=== PATIENT | female | born 1940 | race Caucasian/White ===

== ENCOUNTER 2023-05-04 16:22 | Inpatient (IN) | payer MEDICARE ==
[2023-05-04] MEDS ORDERED: dilTIAZem 25 MG/5 ML VIAL ONE ×2 (17:12→18:06)
[2023-05-04 17:18] LABS: #Eosinphils 0.2 thou/uL (0.0-0.7); #Monocytes 0.6 thou/uL (0.11-0.59); #Neutrophils 3.9 thou/uL (1.40-6.50); %Basophils 0.7 % (0.0-1.0); %Eosinophils 2.9 % (0.0-10.0); %Lymphocytes 21.3 % (21.0-51.0); %Monocytes 9.3 % (0.0-10.0); %Neutrophils 65.6 % (42.0-75.0); Hematocrit 41.1 % (36.0-47.0); Hemoglobin 13.5 g/dL (12.0-16.0); Mean Corpuscular HGB CONC 32.8 g/dL (32.0-36.0); Mean Corpuscular Hemoglobin 31.1 pg (27.0-31.0); Mean Corpuscular Volume 94.7 fl (78.0-98.0); Mean Platelet Volume 12.4 fL (7.4-10.4); Platelet Count 220 10x3/uL (130-400); RBC Distribution Width 14.1 % (11.5-14.5); Red Blood Cell (RBC) Count 4.34 mill/uL (4.20-5.40); White Blood Cell (WBC) Count 5.9 10x3/uL (4.8-10.8)
[2023-05-04 17:33] LABS: ALT (SGPT) 8 U/L (8-55); AST (SGOT) 14 U/L (5-34); Alkaline Phosphatase 66 U/L (40-110); Anion Gap 9 mmol/L (10-20); BUN (Urea Nitrogen) 14 mg/dL (9.8-20.1); Bilirubin, Total 0.8 mg/dL (0.2-1.2); Calc. Creatinine Clearance 0 mL/min (70-130); Calcium 8.1 mg/dL (7.8-10.44); Carbon Dioxide 23 mmol/L (23-31); Chloride 115 mmol/L (98-107); Estimated GFR 55; Globulin 2.8 g/dL (2.4-3.5); Glucose 89 mg/dL (83-110); Magnesium 1.7 mg/dL (1.6-2.6); Potassium 3.1 mmol/L (3.5-5.1); Protein, Total 5.8 g/dL (5.8-8.1); Sodium 144 mmol/L (136-145)
[2023-05-04 17:36] LABS: Troponin I 0.013 ng/mL (< 0.028)
[2023-05-04] MEDS ORDERED: Ondansetron PF 4 MG/2 ML Vial IVP PRN (17:59)
[2023-05-04] MEDS ORDERED: Furosemide 20 MG (2 mL) VIAL SLOW IVP SCH (18:00)
[2023-05-04] MEDS ORDERED: dilTIAZem 125 MG in Sodium Chloride 0.9% 100 ML IVPB SCH (18:00)
[2023-05-04] MEDS ORDERED: Potassium Bicarbonate/Cit Ac 20 MEQ TAB ONE (18:06)
[2023-05-04] MEDS ORDERED: NS 0.9% w/ 20 MEQ KCL 1,000 ML ONE (18:06)
[2023-05-04] MEDS ORDERED: Magnesium 2 GM/50 ML BAG (IN WATER) ONE (18:06)
[2023-05-04] MEDS ORDERED: Potassium Chloride 20 MEQ TAB PO SCH (18:30)
[2023-05-04 22:17] VITALS: BMI 32.5
[2023-05-04 22:28] LABS: Troponin I Less than 0.010 ng/mL (< 0.028)
[2023-05-04] MEDS: Apixaban 5 MG TAB PO SCH (23:09)
[2023-05-05] MEDS: dilTIAZem 125 MG in Sodium Chloride 0.9% 100 ML IVPB SCH ×2 (02:28→23:58)
[2023-05-05 05:12] LABS: #Basophils 0.1 thou/uL (0.0-0.2); #Eosinphils 0.1 thou/uL (0.0-0.7); #Monocytes 0.6 thou/uL (0.11-0.59); #Neutrophils 4.6 thou/uL (1.40-6.50); %Basophils 0.8 % (0.0-1.0); %Eosinophils 2.1 % (0.0-10.0); %Lymphocytes 18.5 % (21.0-51.0); %Monocytes 8.9 % (0.0-10.0); %Neutrophils 69.5 % (42.0-75.0); Hematocrit 42.1 % (36.0-47.0); Hemoglobin 13.3 g/dL (12.0-16.0); Mean Corpuscular HGB CONC 31.6 g/dL (32.0-36.0); Mean Corpuscular Hemoglobin 30.6 pg (27.0-31.0); Mean Platelet Volume 11.8 fL (7.4-10.4); Platelet Count 175 10x3/uL (130-400); RBC Distribution Width 14.2 % (11.5-14.5); Red Blood Cell (RBC) Count 4.34 mill/uL (4.20-5.40); White Blood Cell (WBC) Count 6.6 10x3/uL (4.8-10.8)
[2023-05-05 05:36] LABS: Anion Gap 16 mmol/L (10-20); BUN (Urea Nitrogen) 17 mg/dL (9.8-20.1); Calc. Creatinine Clearance 56 mL/min (70-130); Calcium 9.2 mg/dL (7.8-10.44); Carbon Dioxide 18 mmol/L (23-31); Chloride 109 mmol/L (98-107); Estimated GFR 56; Glucose 105 mg/dL (83-110); Potassium 4.7 mmol/L (3.5-5.1); Sodium 138 mmol/L (136-145)
[2023-05-05] MEDS: Furosemide 20 MG (2 mL) VIAL SLOW IVP SCH ×2 (06:23→14:15)
[2023-05-05] MEDS: Apixaban 5 MG TAB PO SCH ×2 (09:44→21:39)
[2023-05-05] MEDS ORDERED: Lorazepam 2 MG/ML VIAL SLOW IVP PRN (11:53)
[2023-05-05] MEDS: Digoxin 0.5 MG/2 ML AMP SLOW IVP SCH ×2 (14:15→21:37)
[2023-05-05] MEDS ORDERED: QUEtiapine 25 MG TAB PO SCH (14:15)
[2023-05-05] MEDS ORDERED: Ziprasidone 20 MG VIAL IM SCH (15:15)
[2023-05-05] MEDS ORDERED: Sterile Water 10 ML VIAL FS PRN (15:30)
[2023-05-05 16:27] LABS: Bacteria/HPF None Seen HPF (None Seen); Bilirubin Negative (Negative); Blood, Urine Negative (Negative); CAUTI Indications for Culture Alt mental st,lethar; Clarity Clear (Clear); Glucose, Urine (Dipstick) Normal (Negative); Ketone, Urine Negative (Negative); Leukocyte Negative Leu/uL (Negative); Nitrite Negative (Negative); Protein, Urine (Dipstick) Negative (Neg-Trace); RBC/HPF 0-3 HPF (0-3); Specific Gravity, Urine 1.011 (1.002-1.036); Squamous Epithelial 0-3 HPF (0-3); Urobilinogen Normal mg/dL (Less than 2); WBC/HPF 0-3 HPF (0-3); pH, Urine 7.5 (5.0-9.0)
[2023-05-05 16:30] LABS: Urine Culture Reflex No No
[2023-05-06] MEDS: Digoxin 0.5 MG/2 ML AMP SLOW IVP SCH ×2 (02:45→11:52)
[2023-05-06] MEDS ORDERED: VIT D3 PO SCH (09:00)
[2023-05-06] MEDS ORDERED: HOPS PO SCH (09:00)
[2023-05-06] MEDS ORDERED: VIT K PO SCH (09:00)
[2023-05-06] MEDS ORDERED: BERBERINE PO SCH (09:00)
[2023-05-06] MEDS ORDERED: [UNRECOGNIZED DRUG - OTHER] PO SCH (09:00)
[2023-05-06] MEDS ORDERED: Digoxin 0.5 MG/2 ML AMP SLOW IVP SCH (11:45)
[2023-05-06] MEDS: Apixaban 5 MG TAB PO SCH (12:04)
[2023-05-06] MEDS: Atorvastatin Calcium 40 MG TAB PO SCH (12:04)
[2023-05-06] MEDS: Multivitamin W/ Minerals 1 TAB PO SCH (12:05)
[2023-05-06] MEDS: Flecainide 50 MG TAB PO SCH ×2 (12:05→22:22)
[2023-05-06] MEDS: Memantine 10 MG TAB PO SCH ×2 (12:05→22:22)
[2023-05-06] MEDS: dilTIAZem CD 180 MG CAP PO SCH (12:05)
[2023-05-06] MEDS ORDERED: PROPOFOL 20 ML ONE (14:15)
[2023-05-06] MEDS ORDERED: Enoxaparin 80 MG (0.8 mL) SYRINGE SC SCH (16:45)
[2023-05-07 05:46] VITALS: TEMP 98
[2023-05-07] MEDS: Atorvastatin Calcium 40 MG TAB PO SCH (08:39)
[2023-05-07] MEDS: Multivitamin W/ Minerals 1 TAB PO SCH (08:39)
[2023-05-07] MEDS: dilTIAZem CD 180 MG CAP PO SCH (08:39)
[2023-05-07] MEDS: Flecainide 50 MG TAB PO SCH (08:39)
[2023-05-07] MEDS: Memantine 10 MG TAB PO SCH (08:39)
[2023-05-07 08:45] VITALS: BP 142/84
[2023-05-07] MEDS ORDERED: Apixaban 5 MG TAB PO SCH (09:00)
[2023-05-08] MEDS ORDERED: FLU VACC QS2023(65UP)/MF59C/PF 60 MCG/0.5 ML SYRINGE IM ONE (09:00)
== END 2023-05-07 10:45 | disposition home or self-care (01) | DRG 308 ==
LOC: ERS 16:22 → 2NO 18:03 → OBSVTOIN 05-05 06:57
PROVIDERS: ADMIT Internal Medicine; ATTEND Internal Medicine
PROC: 5A2204Z Restoration of Cardiac Rhythm, Single (ICD-10-PCS; principal; 2023-05-07)
DX: I48.19 Other persistent atrial fibrillation (principal); I50.33 Acute on chronic diastolic (congestive) heart failure; J96.01 Acute respiratory failure with hypoxia; I11.0 Hypertensive heart disease with heart failure; F03.90 Unspecified dementia, unspecified severity, without behavioral disturbance, psychotic disturbance, mood disturbance, and anxiety; Z90.49 Acquired absence of other specified parts of digestive tract; Z90.710 Acquired absence of both cervix and uterus; Z98.890 Other specified postprocedural states; Z79.899 Other long term (current) drug therapy; Z79.01 Long term (current) use of anticoagulants; E87.6 Hypokalemia
CPT/HCPCS: 36415; 36416; 71045; 80048; 80053; 81001; 83735; 83880; 84443; 84484; 85025; 92960; 93005; 93306; 96374; 96375; 96376; G0378; J1160; J1650; J1940; J2060; J2704; J3475; J3480; J3486; J3490